=== PATIENT | male | born 1935 | race African-American/Black ===

== ENCOUNTER 2018-07-30 10:43 | Inpatient (IN) | payer MEDICAID, MEDICARE ==
[~2018-07-30] VITALS: Ht 177.8 cm; Wt 64.4 kg
[~2018-07-30 10:43] MED LIST: APAP/CODEINE; ASA5EC PO; HYDR-3933 PO; LORA10TA7 PO
[2018-07-30] MEDS ORDERED: SODIUM CHLORIDE 0.9% 1000ML BAG (SEPSIS BOLUS) IV ONE (12:00)
[2018-07-30] MEDS ORDERED: CEFTRIAXONE 1 G PREMIX 50 ML IV ONE (12:00)
[2018-07-30 12:13] LABS: HEMATOCRIT. 37.4 % (42.0-52.0); HEMOGLOBIN. 12.7 g/dL (14.0-18.0); MEAN CORPUSCULAR HEMOGLOBIN 31.4 pg (28.0-32.0); MEAN CORPUSCULAR VOLUME 92.3 fL (80.0-94.0); MEAN PLATELET VOLUME 8.6 fl (7.4-10.4); PLATELET 480 x1000/uL (130-400); RED BLOOD CELL COUNT 4.06 mill/uL (4.7-6.1); RED CELL DISTRIBUTION WIDTH 14.5 % (11.6-14.6)
[2018-07-30 12:20] LABS: CHLORIDE 105 mEq/L (98-107)
[2018-07-30 12:21] LABS: INR 1.2
[2018-07-30 12:37] LABS: PLATELET ESTIMATE INCREASED
[2018-07-30] MEDS ORDERED: AZITHROMYCIN 500 MG in DEXT 5% WATER 250 ML IV SCH ×3 (12:45→22:15)
[2018-07-30 15:26] LABS: CLARITY URINE CLEAR (CLEAR); COLOR URINE YELLOW (YELLOW); KETONES URINE NEGATIVE (NEGATIVE); LEUKOCYTE ESTERASE URINE NEGATIVE (NEGATIVE); NITRITE URINE NEGATIVE (NEGATIVE); OCCULT BLOOD URINE TRACE (NEGATIVE); PH URINE 5.5 (4.5-8.0); PROTEIN URINE TRACE (NEGATIVE); SPECIFIC GRAVITY URINE 1.015 (1.005-1.030); UROBILINOGEN URINE 0.2 E.U./dL (0.2-1.0)
[2018-07-30 20:00] VITALS: BP 134/63
[2018-07-30 20:36] VITALS: BP 134/63
[2018-07-30] MEDS ORDERED: ACET-2178 PO (21:11)
[2018-07-30] MEDS ORDERED: INFLUENZA VIRUS VACCINE(AFLURIA) 0.5ML SYR IM ONE (21:45)
[2018-07-30] MEDS ORDERED: ACETAMINOPHEN 325MG TABLET PO PRN (22:15)
[2018-07-30] MEDS ORDERED: CEFTRIAXONE 1 G PREMIX 50 ML IV SCH (22:15)
[2018-07-30] MEDS: DEXT 5%/0.45% NACL 1000ML 1,000 ML IV SCH (23:01)
[2018-07-31] VITALS: BP 140/62
[2018-07-31 04:00] VITALS: BP 136/63
[2018-07-31 08:00] VITALS: BP 130/61
[2018-07-31] MEDS: ENOXAPARIN 40MG/0.4ML SYR SUBCUT SCH (09:28)
[2018-07-31 12:00] VITALS: BP 110/56
[2018-07-31 12:44] LABS: HEMATOCRIT 31.1 % (42.0-52.0); HEMOGLOBIN 10.2 g/dL (14.0-18.0); MEAN CORPUSCULAR HEMOGLOBIN 30.7 pg (28.0-32.0); MEAN CORPUSCULAR VOLUME 93.6 fL (80.0-94.0); PLATELET 382 x1000/uL (130-400); RED BLOOD CELL COUNT 3.32 mill/uL (4.7-6.1); RED CELL DISTRIBUTION WIDTH 14.6 % (11.6-14.6)
[2018-07-31] MEDS: DEXT 5%/0.45% NACL 1000ML 1,000 ML IV SCH (12:57)
[2018-07-31] MEDS: AZITHROMYCIN 500 MG in DEXT 5% WATER 250 ML IV SCH (12:58)
[2018-07-31 12:59] LABS: BG BASE EXCESS -0.7 mmol/L (-2.0-2.0); BG CARBOXYHEMOGLOBIN 0.3 % (0.5-1.5); BG FRACTION INSPIRED OXYGEN 21; BG HCO3 ACT 23.5 mmol/L (22.0-26.0); BG METHEMOGLOBIN 0.3 % (0.0-1.5); BG OXYHEMOGLOBIN 95.4 % (94.0-97.0); BG PCO2 36.8 mmHg (35.0-45.0); BG PH 7.423 (7.350-7.450); BG PO2 82.3 mmHg (75.0-100.0); BG SAMPLE SITE RIGHT BRACHIAL; BG TOTAL HEMOGLOBIN 10.3 g/dL (12.0-18.0); BG VENT MODE ROOM AIR
[2018-07-31 13:02] LABS: CHLORIDE 110 mEq/L (98-107)
[2018-07-31 13:10] LABS: LDL CHOLESTEROL 63 mg/dL (5-100)
[2018-07-31 13:11] LABS: HDL CHOLESTEROL 52 mg/dL (40-59)
[2018-07-31 15:59] LABS: *BARBITURATES SCREEN URINE NEGATIVE (NEGATIVE)
[2018-07-31 16:00] VITALS: BP 141/71
[2018-07-31 16:00] LABS: *AMPHETAMINES SCREEN URINE NEGATIVE (NEGATIVE); *BENZODIAZEPINES SCREEN URINE NEGATIVE (NEGATIVE); *COCAINE SCREEN URINE NEGATIVE (NEGATIVE); CANNABINOID URINE SCREEN NEGATIVE (NEGATIVE); METHADONE URINE SCREEN NEGATIVE (NEGATIVE); OPIATES URINE SCREEN NEGATIVE (NEGATIVE)
[2018-07-31 16:01] LABS: PHENCYCLIDINE URINE SCREEN NEGATIVE (NEGATIVE)
[2018-07-31] MEDS: CEFTRIAXONE 1 G PREMIX 50 ML IV SCH (16:08)
[2018-07-31] MEDS: FAMOTIDINE 20MG TABLET PO SCH (16:08)
[2018-07-31 16:26] LABS: TOTAL IRON BINDING CAPACITY 147 ug/dL (250-450)
[2018-07-31 20:00] VITALS: BP_SYST 106; BP_SYST 123; BP_SYST 135; BP_DIAS 60; BP_DIAS 64; BP_DIAS 67
[2018-08-01] VITALS (7 sets, daily range): BP systolic 107–158; BP diastolic 58–78
[2018-08-01] MEDS: DEXT 5%/0.45% NACL 1000ML 1,000 ML IV SCH ×2 (04:49→17:38)
[2018-08-01] MEDS: ENOXAPARIN 40MG/0.4ML SYR SUBCUT SCH (08:21)
[2018-08-01] MEDS: FAMOTIDINE 20MG TABLET PO SCH (08:21)
[2018-08-01] MEDS: FERROUS SULFATE 325MG TABLET PO SCH ×2 (12:29→17:37)
[2018-08-01] MEDS: AZITHROMYCIN 500 MG in DEXT 5% WATER 250 ML IV SCH (12:29)
[2018-08-01] MEDS: CEFTRIAXONE 1 G PREMIX 50 ML IV SCH (14:37)
[2018-08-01 17:42] LABS: HEMATOCRIT 31.4 % (42.0-52.0); HEMOGLOBIN 10.5 g/dL (14.0-18.0); MEAN CORPUSCULAR HEMOGLOBIN 30.5 pg (28.0-32.0); MEAN CORPUSCULAR VOLUME 91.4 fL (80.0-94.0); PLATELET 346 x1000/uL (130-400); RED BLOOD CELL COUNT 3.43 mill/uL (4.7-6.1); RED CELL DISTRIBUTION WIDTH 14.6 % (11.6-14.6)
[2018-08-01 17:52] LABS: CHLORIDE 105 mEq/L (98-107)
[2018-08-01] MEDS ORDERED: ACETYLCYSTEINE 100MG/ML 10% VIAL 4ML INH NR (18:00)
[2018-08-01 18:03] LABS: T4 FREE 0.91 ng/dL (0.76-1.46)
[2018-08-01] MEDS ORDERED: LACTULOSE 20G/30ML UDC PO NR (20:00)
[2018-08-01] MEDS ORDERED: GUAIFENESIN 600MG ER TABLET PO SCH (21:00)
== END 2018-08-01 22:33 | disposition hospice, home (50) | DRG 683 ==
LOC: ER 10:43 → EDBEDREQ 11:49 → 5WST 13:03 → EDBEDREQSVC 13:07 → EDBEDREQ 13:07 → EDBEDREQTM 13:07 → ENRESERV 17:49
PROVIDERS: ADMIT Internal Medicine; ATTEND Internal Medicine
DX: N17.9 Acute kidney failure, unspecified (principal); J44.1 Chronic obstructive pulmonary disease with (acute) exacerbation; E87.2 Acidosis; J06.9 Acute upper respiratory infection, unspecified; N13.30 Unspecified hydronephrosis; I10 Essential (primary) hypertension; R80.9 Proteinuria, unspecified; C61 Malignant neoplasm of prostate; C67.9 Malignant neoplasm of bladder, unspecified; D64.9 Anemia, unspecified; E61.1 Iron deficiency; E03.9 Hypothyroidism, unspecified; R62.7 Adult failure to thrive; Z66 Do not resuscitate; R13.10 Dysphagia, unspecified; R47.02 Dysphasia; R74.8 Abnormal levels of other serum enzymes; N32.89 Other specified disorders of bladder
CPT/HCPCS: 36415; 36600; 70360; 71045; 74176; 80048; 80061; 80305; 82270; 82375; 82805; 83036; 83540; 83550; 83605; 84145; 84153; 84439; 84443; 84484; 85027; 87804; 90686; 93005; 93970; 96361; 96365; 96366; 97162; 99291; J0456; J0696; J1650; J3490; J7030; J7042; J7060; J7608; G0103